=== PATIENT | male | born 1990 | race Two or more races ===

== ENCOUNTER 2020-07-31 20:35 | Emergency (ER) | payer MEDICAID ==
[~2020-07-31] VITALS: Ht 180.3 cm; Wt 81.8 kg
[2020-08-01] MEDS ORDERED: PROPARACAINE HCL 0.5% 15 ML OPHTHALMIC SOLUTION OU ONE
[2020-08-01] MEDS ORDERED: FLUORESCEIN SODIUM 1 MG STRIP OD ONE
[2020-08-01 00:30] VITALS: BP 119/87
[2020-08-01] MEDS ORDERED: ERYTHROMYCIN 0.5% 3.5 GM TUBE OPHTHALMIC OINTMENT OD ONE (00:45)
== END 2020-08-01 01:15 | disposition home or self-care (01) ==
LOC: EMS 20:37
DX: S05.01XA Injury of conjunctiva and corneal abrasion without foreign body, right eye, initial encounter (principal); W22.8XXA Striking against or struck by other objects, initial encounter; Y93.89 Activity, other specified; Y92.89 Other specified places as the place of occurrence of the external cause; Y99.8 Other external cause status
CPT/HCPCS: 99283